=== PATIENT | female | born 1965 | race Caucasian/White ===

== ENCOUNTER 2022-12-15 09:16 | Observation (INO) | payer BC ==
[2022-12-14 17:04] VITALS: BP 127/77; PULSE 92; RESP 18; O2SAT 96
[2022-12-15] VITALS (11 sets, daily range): BP systolic 108–151; BP diastolic 66–99; PULSE 63–109; RESP 16–20; TEMP 97.3–97.6; O2SAT 91–97
[~2022-12-15] VITALS: Ht 162.6 cm; Wt 92.7 kg
[~2022-12-15 09:16] MED LIST: NAPR220C PO; PHEN37.577 PO
[2022-12-15] MEDS ORDERED: MIDAZOLAM HCL 2MG/2ML 2ml VIAL (1mg/ml) ONE (09:26)
[2022-12-15] MEDS ORDERED: BUPIVACAINE/DEXTROSE MPF 0.75% 2 ML AMP IT ONE (09:26)
[2022-12-15] MEDS ORDERED: EPINEPHrine HCL 1 MG/1 ML AMP ONE (09:26)
[2022-12-15] MEDS ORDERED: DexAMETHasone SOD PHOS 10MG/1ML VIAL INJ ONE (09:26)
[2022-12-15] MEDS ORDERED: MORPHINE SULF PF 5 MG/10 ML VIAL ONE (09:26)
[2022-12-15] MEDS ORDERED: fentaNYL CITRATE 100 MCG/2 ML VL ONE (09:26)
[2022-12-15] MEDS ORDERED: SODIUM CHLORIDE LOCK 10 ML ONE (09:27)
[2022-12-15] MEDS ORDERED: ONDANSETRON HCL 4 MG/2 ML VIAL ONE (09:27)
[2022-12-15] MEDS ORDERED: PROPOFOL 10 MG/ML 20 ML IV ONE ×2 (09:27→11:27)
[2022-12-15] MEDS ORDERED: TRANEXAMIC ACID 20 ML ONE (09:43)
[2022-12-15] MEDS ORDERED: TETRACAINE 1% INJ 2 ML VIAL IJ ONE (09:44)
[2022-12-15] MEDS ORDERED: VANCOMYCIN HCL 1000 MG VL ONE (09:45)
[2022-12-15] MEDS ORDERED: DexAMETHasone SOD PHOS 4 MG/1ML SDV INJ ONE (10:02)
[2022-12-15] MEDS ORDERED: BUPIVACAINE 0.25% INJ 50ML VIAL ONE (10:03)
[2022-12-15] MEDS ORDERED: ceFAZolin 1GM/50ML 100 ML IV ONE (10:35)
[2022-12-15] MEDS ORDERED: MORPHINE SULFATE INJ 2 MG/ml SYRG IV PRN (12:45)
[2022-12-15] MEDS ORDERED: HYDROmorphone HCL 2 MG/ML VL/or syr IV PRN (12:45)
[2022-12-15] MEDS ORDERED: oxyCODONE HCL 5MG TAB PO PRN ×2 (12:45)
[2022-12-15] MEDS ORDERED: NALOXONE HCL 0.4 MG/ML VIAL IV PRN (12:45)
[2022-12-15] MEDS ORDERED: diphenhdrAMINE HCL 50 MG/1 ML VL IV PRN (12:45)
[2022-12-15] MEDS ORDERED: METOCLOPRAMIDE HCL 5MG/ml INJ 2ml VIAL IV PRN (12:45)
[2022-12-15] MEDS ORDERED: ACETAMINOPHEN 325 MG TAB PO PRN (12:45)
[2022-12-15] MEDS: HYDROmorphone HCL 2 MG/ML VL/or syr IV PRN ×4 (13:06→14:12)
[2022-12-15] MEDS: ceFAZolin 2 GM/D5W100ml 100 ML IV SCH ×2 (14:00→22:03)
[2022-12-15] MEDS: ACETAMINOPHEN 325 MG TAB PO SCH ×3 (18:00→23:45)
[2022-12-15] MEDS: KETOROLAC TROMETH 30 MG/ML 1ML VIAL IV SCH ×2 (18:19→23:49)
[2022-12-15] MEDS: D5W/LACTATED RINGERS 1,000 ML IV SCH ×2 (18:26→22:45)
[2022-12-15] MEDS ORDERED: FAMOTIDINE (10MG/ML) 2ML VL IV ONE (20:30)
[2022-12-15] MEDS: ONDANSETRON HCL 4 MG/2 ML VIAL IV PRN (21:22)
[2022-12-15] MEDS: PREGABALIN 25 MG CAP PO SCH (22:00)
[2022-12-15] MEDS ORDERED: MORPHINE SULFATE INJ 2 MG/ml SYRG IV ONE (23:15)
[2022-12-15] MEDS: METOCLOPRAMIDE HCL 5MG/ml INJ 2ml VIAL IV PRN (23:49)
[2022-12-16] VITALS (16 sets, daily range): BP systolic 101–130; BP diastolic 59–77; PULSE 62–78; RESP 16–18; TEMP 97.1–97.8; O2SAT 95–100
[2022-12-16] MEDS ORDERED: ONDANSETRON HCL 4 MG/2 ML VIAL IV ONE (02:00)
[2022-12-16] MEDS: ONDANSETRON HCL 4 MG/2 ML VIAL IV PRN (05:45)
[2022-12-16] MEDS: KETOROLAC TROMETH 30 MG/ML 1ML VIAL IV SCH ×2 (05:45→12:00)
[2022-12-16] MEDS: ACETAMINOPHEN 325 MG TAB PO SCH ×2 (05:47→12:00)
[2022-12-16 07:05] LABS: Basophils # (auto) 0 10 ^3/uL (0-0.2); Basophils % (auto) 0.1 % (0.0-2.0); Eosinophils # (auto) 0 10 ^3/uL (0-0.8); Eosinophils % (auto) 0.1 % (0.0-7.0); Hematocrit 38.2 % (36.0-46.0); Hemoglobin 12.7 g/dL (12.2-16.2); Lymphocytes # (auto) 1.1 10 ^3/uL (0.4-5.4); Lymphocytes % (auto) 8.7 % (10.0-50.0); Mean Corpuscular Hemoglobin 30.1 pg (28.0-32.0); Mean Corpuscular Hgb Conc. 33.3 g/dL (32.0-36.0); Mean Corpuscular Volume 90.5 fL (80.0-100.0); Monocytes # (auto) 0.8 10 ^3/uL (0-1.3); Monocytes % (auto) 6.6 % (0.0-12.0); Neutrophils # (auto) 10.5 10 ^3/uL (1.6-8.6); Neutrophils % (auto) 84.5 % (37.0-80.0); Red Blood Cells 4.22 10^6/uL (4.0-5.20); White Blood Cell 12.5 10^3/uL (4.4-10.8)
[2022-12-16 07:41] LABS: Calcium 8.5 mg/dL (8.5-10.1); Potassium 4.1 mmol/L (3.5-5.1)
[2022-12-16 07:44] LABS: BUN/Creatinine Ratio 16.3 (10.0-20.0)
[2022-12-16] MEDS: METOCLOPRAMIDE HCL 5MG/ml INJ 2ml VIAL IV PRN (07:53)
[2022-12-16] MEDS: D5W/LACTATED RINGERS 1,000 ML IV SCH (08:39)
[2022-12-16] MEDS ORDERED: D5W/LACTATED RINGERS 1,000 ML IV SCH (09:45)
[2022-12-16] MEDS ORDERED: HYDROmorphone HCL 2 MG/ML VL/or syr IV ONE (09:45)
[2022-12-16] MEDS ORDERED: ASPirin 81 mg TAB PO SCH (10:00)
[2022-12-16] MEDS: PREGABALIN 25 MG CAP PO SCH (10:41)
[2022-12-16 13:10] LABS: Urine Bacteria NONE SEEN /hpf (None Seen); Urine Blood Negative /uL (Negative); Urine Clarity Clear (Clear); Urine Color Yellow (Yellow); Urine Mucus FEW (None Seen); Urine Protein, UAD Negative (Negative); Urine Urobilinogen Normal (Negative); Urine WBC 1 /hpf (0 - 5); Urine pH 5.5 (5.0-8.0)
== END 2022-12-16 19:11 | disposition home or self-care (01) ==
LOC: SUR 09:16 → TELE 12:39 → TELE-CENTR 15:10
PROVIDERS: ADMIT Orthopaedic Surgery; ATTEND Orthopaedic Surgery
DX: M17.11 Unilateral primary osteoarthritis, right knee (principal); E78.5 Hyperlipidemia, unspecified; E66.9 Obesity, unspecified; J45.909 Unspecified asthma, uncomplicated; Z96.651 Presence of right artificial knee joint; Z79.899 Other long term (current) drug therapy
CPT/HCPCS: 27447; 36415; 73560; 80048; 81001; 85025; 86850; 86900; 86901; 96365; 96375; 96376; 97110; 97116; 97163; 97530; C1776; G0378; J0171; J0690; J1100; J1170; J1885; J2250; J2270; J2405; J2704; J2765; J3010; J3370; J3490

== ENCOUNTER 2023-03-28 09:36 | Inpatient (IN) | payer BC ==
[~2023-03-28] VITALS: Ht 160 cm; Wt 83.3 kg
[2023-03-28 10:17] LABS: Basophils # (auto) 0 10 ^3/uL (0-0.2); Basophils % (auto) 0.5 % (0.0-2.0); Eosinophils # (auto) 0.2 10 ^3/uL (0-0.8); Eosinophils % (auto) 3.9 % (0.0-7.0); Hemoglobin 14.3 g/dL (12.2-16.2); Lymphocytes # (auto) 1.4 10 ^3/uL (0.4-5.4); Lymphocytes % (auto) 23.1 % (10.0-50.0); Mean Corpuscular Hemoglobin 29.6 pg (28.0-32.0); Mean Corpuscular Hgb Conc. 34.2 g/dL (32.0-36.0); Mean Corpuscular Volume 86.5 fL (80.0-100.0); Monocytes # (auto) 0.4 10 ^3/uL (0-1.3); Monocytes % (auto) 6.9 % (0.0-12.0); Neutrophils # (auto) 4.1 10 ^3/uL (1.6-8.6); Neutrophils % (auto) 65.6 % (37.0-80.0); Nucleated Red Blood Cells % 0.4 %; Red Blood Cells 4.85 10^6/uL (4.0-5.20); Red Cell Distribution Width 13.8 % (11.8-14.3); White Blood Cell 6.2 10^3/uL (4.4-10.8)
[2023-03-28 10:33] LABS: Alanine Aminotransferase 27 U/L (7-40); Albumin 4.7 g/dL (3.2-4.8); Alkaline Phosphatase 79 U/L (46-116); Anion Gap 6 (5-15); Aspartate Aminotransferase 21 U/L (13-40); BUN/Creatinine Ratio 8.9 (10.0-20.0); Blood Urea Nitrogen 9 mg/dL (9-23); Calcium 9.6 mg/dL (8.7-10.4); Carbon Dioxide 29 mmol/L (20-30); Chloride 108 mmol/L (98-107); Glucose 100 mg/dL (74-106); Potassium 4.6 mmol/L (3.5-5.1); Sodium 143 mmol/L (136-145)
[2023-03-28 10:34] LABS: Total Protein 7.2 g/dL (5.7-8.2)
[2023-03-28 11:59] LABS: Urine Bacteria FEW /hpf (None Seen); Urine Blood Negative /uL (Negative); Urine Clarity Clear (Clear); Urine Hyaline Cast FEW /lpf (0 - 2); Urine Protein, UAD Negative (Negative); Urine Specific Gravity 1.009 (1.001-1.035); Urine Urobilinogen Normal (Negative); Urine WBC 3 /hpf (0 - 5); Urine pH 6.5 (5.0-8.0)
[2023-03-28] MEDS ORDERED: MECLIZINE HCL 25 MG TAB PO ONE (12:00)
[2023-03-28 12:05] LABS: Urine Color STRAW (Yellow)
[2023-03-28] MEDS ORDERED: MORPHINE SULFATE INJ 2 MG/ml SYRG IV PRN (14:30)
[2023-03-28] MEDS ORDERED: NITROGLYCERIN 0.4 MG SL TAB SL PRN (14:30)
[2023-03-28] MEDS ORDERED: cefTRIAXone 1GM/50ML D5W 50 ML IV ONE (14:30)
[2023-03-28 15:17] LABS: Triglycerides 176 mg/dL (< 150)
[2023-03-28 15:18] LABS: LDL Cholesterol 173 mg/dL (< 100)
[2023-03-28 15:19] LABS: HDL Cholesterol 62 mg/dL (40-59)
[2023-03-28 15:20] LABS: Cholesterol 245 mg/dL (< 200)
[2023-03-28] MEDS: SODIUM CHLORIDE 0.9% 1,000 ML IV SCH (16:24)
[2023-03-28 22:28] VITALS: PULSE 73; RESP 20; O2SAT 100
[2023-03-28] MEDS: ACETAMINOPHEN 325 MG TAB PO PRN (22:30)
[2023-03-29] MEDS: SODIUM CHLORIDE 0.9% 1,000 ML IV SCH ×2 (04:14→17:28)
[2023-03-29 06:01] LABS: Basophils # (auto) 0 10 ^3/uL (0-0.2); Basophils % (auto) 0.6 % (0.0-2.0); Eosinophils # (auto) 0.2 10 ^3/uL (0-0.8); Eosinophils % (auto) 3.8 % (0.0-7.0); Hematocrit 42.1 % (36.0-46.0); Hemoglobin 14.4 g/dL (12.2-16.2); Lymphocytes # (auto) 1.7 10 ^3/uL (0.4-5.4); Lymphocytes % (auto) 25.5 % (10.0-50.0); Mean Corpuscular Hemoglobin 29.6 pg (28.0-32.0); Monocytes # (auto) 0.6 10 ^3/uL (0-1.3); Monocytes % (auto) 9.4 % (0.0-12.0); Neutrophils % (auto) 60.7 % (37.0-80.0); Red Blood Cells 4.84 10^6/uL (4.0-5.20); Red Cell Distribution Width 13.9 % (11.8-14.3); White Blood Cell 6.5 10^3/uL (4.4-10.8)
[2023-03-29 06:06] LABS: Alanine Aminotransferase 23 U/L (7-40); Albumin 4.7 g/dL (3.2-4.8); Alkaline Phosphatase 76 U/L (46-116); Anion Gap 7 (5-15); Aspartate Aminotransferase 15 U/L (13-40); BUN/Creatinine Ratio 14.9 (10.0-20.0); Bilirubin, Total 0.7 mg/dL (0.2-1.0); Blood Urea Nitrogen 13 mg/dL (9-23); Calcium 9.3 mg/dL (8.7-10.4); Carbon Dioxide 27 mmol/L (20-30); Chloride 107 mmol/L (98-107); Glucose 90 mg/dL (74-106); Potassium 3.7 mmol/L (3.5-5.1); Sodium 141 mmol/L (136-145); Total Protein 7.7 g/dL (5.7-8.2)
[2023-03-29] MEDS: MECLIZINE HCL 25 MG TAB PO PRN ×2 (07:36→22:40)
[2023-03-29] MEDS ORDERED: MECLIZINE HCL 25 MG TAB PO ONE (07:45)
[2023-03-29] MEDS ORDERED: LORazepam 2MG/ML-1ML VIAL IV PRN (09:15)
[2023-03-29] MEDS ORDERED: LORazepam 0.5 MG TAB PO PRN (09:15)
[2023-03-29] MEDS: busPIRone HCL 10 MG TAB PO SCH ×2 (10:34→22:00)
[2023-03-29] MEDS: ENOXAPARIN SOD 40 MG/0.4 ML SYRINGE SC SCH (10:35)
[2023-03-29 11:38] LABS: Folate (Folic Acid) > 24.00 ng/mL (>5.38)
[2023-03-29] MEDS ORDERED: ASPirin 81 mg TAB PO ONE (12:30)
[2023-03-29] MEDS: ACETAMINOPHEN 325 MG TAB PO PRN (15:25)
[2023-03-29 16:29] VITALS: PULSE 85; RESP 20; O2SAT 99
[2023-03-29 19:20] VITALS: PULSE 80; RESP 18; O2SAT 98
[2023-03-29] MEDS ORDERED: ATORVASTATIN 20 MG TAB PO SCH (22:00)
[2023-03-30] VITALS (7 sets, daily range): BP systolic 147–165; BP diastolic 72–83; PULSE 67–120; RESP 15–19; TEMP 97.9–98.6; O2SAT 97–99
[2023-03-30 05:59] LABS: Basophils # (auto) 0 10 ^3/uL (0-0.2); Basophils % (auto) 0.7 % (0.0-2.0); Eosinophils # (auto) 0.3 10 ^3/uL (0-0.8); Eosinophils % (auto) 4.8 % (0.0-7.0); Hematocrit 41.4 % (36.0-46.0); Lymphocytes # (auto) 1.7 10 ^3/uL (0.4-5.4); Lymphocytes % (auto) 29.6 % (10.0-50.0); Mean Corpuscular Hemoglobin 29.3 pg (28.0-32.0); Mean Corpuscular Hgb Conc. 33.9 g/dL (32.0-36.0); Mean Corpuscular Volume 86.3 fL (80.0-100.0); Monocytes # (auto) 0.5 10 ^3/uL (0-1.3); Monocytes % (auto) 9.4 % (0.0-12.0); Neutrophils # (auto) 3.1 10 ^3/uL (1.6-8.6); Neutrophils % (auto) 55.5 % (37.0-80.0); Nucleated Red Blood Cells % 0.1 %; Red Blood Cells 4.79 10^6/uL (4.0-5.20); White Blood Cell 5.6 10^3/uL (4.4-10.8)
[2023-03-30 06:15] LABS: Calcium 9.5 mg/dL (8.5-10.1); Chloride 109 mmol/L (98-107); Potassium 4.2 mmol/L (3.5-5.1); Sodium 142 mmol/L (136-145)
[2023-03-30 06:16] LABS: Anion Gap 7 (5-15); Carbon Dioxide 26 mmol/L (20-30)
[2023-03-30 06:21] LABS: BUN/Creatinine Ratio 10.8 (10.0-20.0); Blood Urea Nitrogen 9 mg/dL (9-23); Glucose 102 mg/dL (74-106)
[2023-03-30] MEDS: ACETAMINOPHEN 325 MG TAB PO PRN (06:42)
[2023-03-30] MEDS: SODIUM CHLORIDE 0.9% 1,000 ML IV SCH ×2 (07:30→14:06)
[2023-03-30] MEDS: ENOXAPARIN SOD 40 MG/0.4 ML SYRINGE SC SCH (09:41)
[2023-03-30] MEDS ORDERED: ASPirin 81 mg TAB PO SCH (10:00)
[2023-03-30] MEDS ORDERED: ATOR20TA50 PO (12:03)
[2023-03-30] MEDS ORDERED: LISI10TA34 PO (12:05)
[2023-03-30] MEDS: MECLIZINE HCL 25 MG TAB PO PRN (14:44)
[2023-03-30] MEDS ORDERED: LISINOPRIL 10 MG TAB PO ONE (16:45)
[2023-03-30 17:20] LABS: Amphetamine Screen, Urine Neg (NEGATIVE); Barbiturate Scree,Urine Neg (NEGATIVE); Benzodiazephine Screen, Urine Neg (NEGATIVE); Cannabinoid Screen, Urine Neg (NEGATIVE); Cocaine Screen, Urine Neg (NEGATIVE); Opiate Scree,Urine Neg (NEGATIVE); Phencyclidine Screen, Urine Neg (NEGATIVE)
[2023-03-31] MEDS ORDERED: LISINOPRIL 10 MG TAB PO SCH (10:00)
== END 2023-03-30 19:50 | disposition home or self-care (01) | DRG 149 ==
LOC: ER 09:36 → TELE 14:30 → TELE-WESTW 03-30 11:53
PROVIDERS: ADMIT Internal Medicine Geriatric Medicine; ATTEND Student in an Organized Health Care Education/Training Program
DX: R42 Dizziness and giddiness (principal); I24.9 Acute ischemic heart disease, unspecified; N39.0 Urinary tract infection, site not specified; R07.9 Chest pain, unspecified; E66.01 Morbid (severe) obesity due to excess calories; F41.9 Anxiety disorder, unspecified; E78.5 Hyperlipidemia, unspecified; I95.1 Orthostatic hypotension; F45.9 Somatoform disorder, unspecified; R51.9 Headache, unspecified; M19.90 Unspecified osteoarthritis, unspecified site; Z71.3 Dietary counseling and surveillance; Z68.32 Body mass index [BMI] 32.0-32.9, adult; Z79.899 Other long term (current) drug therapy; Z82.49 Family history of ischemic heart disease and other diseases of the circulatory system
CPT/HCPCS: 36415; 70450; 70551; 71045; 80048; 80053; 80061; 80307; 81001; 82607; 82746; 82962; 84443; 84484; 85025; 87086; 87088; 87186; 93005; 93306; 93886; 95819; 96365; 99291; G0378; J0696